=== PATIENT | female | born 1945 | race Caucasian/White ===

== ENCOUNTER 2016-11-21 00:45 | Emergency (ER) | payer OTHER ==
[~2016-11-21] VITALS: Ht 162.6 cm; Wt 77.1 kg
[2016-11-21 00:55] VITALS: BP 145/99
--- NOTE | 2016-11-21 01:00 | NUR ---
PT CLIVE ALS. TAKEN TO BED 4
--- NOTE | 2016-11-21 01:03 | NUR ---
REPORTED TO POISON CONTROL AND SPOKEN TO BUBBA AND ADVISED CLOSED OBSERVATION FOR DROWSINESS, VOMITING, SEIZURE, FOR 8-10 HOURS OBSERVATION, SUPPORTIVE MEASURES, AND BLOOD WORKS ERMD ORDERED ALREADY.
--- NOTE | 2016-11-21 01:05 | NUR ---
PT PLACE ON 5[address] HOLD BY RADHA BAR
[2016-11-21 01:21] LABS: BASOPHILS # (AUTO) 0.1 K/uL (0.00-0.22); BASOPHILS % (AUTO) 1.3 % (0.0-2.0); EOSINOPHILS # (AUTO) 0.3 K/uL (0-0.4); EOSINOPHILS % (AUTO) 2.9 % (0.0-4.0); HEMATOCRIT 39.7 % (36-48); LYMPHOCYTES # (AUTO) 3.1 K/uL (2.5-16.5); MEAN CORPUSCULAR HEMOGLOBIN 28 pg (27-31); MEAN CORPUSCULAR HGB CONC 33 g/dL (33-37); MEAN CORPUSCULAR VOLUME 85 fL (80-94); MONOCYTES # (AUTO) 0.5 K/uL (0.8-1.0); MONOCYTES % (AUTO) 5.7 % (1.7-9.3); NEUTROPHILS # (AUTO) 5.2 K/uL (1.8-7.7); NEUTROPHILS % (AUTO) 56.1 % (42.2-75.2); PLATELET COUNT (AUTO) 228 K/uL (140-450); RED BLOOD CELL COUNT(AUTO) 4.69 MIL/uL (4.20-5.40); RED CELL DISTRIBUTION WIDTH 12.4 % (11.6-13.7); WHITE BLOOD COUNT (AUTO) 9.2 K/uL (4.8-10.8)
--- NOTE | 2016-11-21 01:39 | NUR ---
PATIENT CLIVE PRESENTS TO ED AFTER TAKING 6-8 [employer] AND TELLING NEIGHBORS SHE WROTE A GOOD BYE LETTER . PT STATES SHE IS IN NO CURRENT PAIN AT THIS TIME . DENIES N/V/D; SKIN IS PINK/WARM/DRY; AAOX4 WITH EVEN AND STEADY GAIT; LUNGS CLEAR BL; HR EVEN AND REGULAR; PT DENIES ANY FEVER, CP, SOB, OR COUGH AT THIS TIME; PATIENT STATES PAIN OF 0/10 AT THIS TIME; VSS; PATIENT POSITIONED FOR COMFORT; HOB ELEVATED; BEDRAILS UP X2; BED DOWN. ER MD MADE AWARE OF PT STATUS.
[2016-11-21 01:49] LABS: ALANINE AMINOTRANSFERASE 22 U/L (12-78); ALBUMIN 3.7 g/dL (3.4-5.0); ALCOHOL, BLOOD < 3 mg/dL (<3); ALKALINE PHOSPHATASE 93 U/L (46-116); ANION GAP 13.5 (8-16); ASPARTATE AMINOTRANSFERASE 19 U/L (15-37); CALCIUM 9.5 mg/dL (8.5-10.1); CARBON DIOXIDE 29.5 mmol/L (21-32); CHLORIDE 100 mmol/L (98-107); CREATININE 1.1 mg/dL (0.6-1.3); GLUCOSE 256 mg/dL (74-106); SODIUM SERUM 139 mmol/L (136-145); TOTAL BILIRUBIN 0.2 mg/dL (0.0-1.0); TOTAL PROTEIN, SERUM 7.2 g/dL (6.4-8.2); UREA NITROGEN, BLOOD 15 mg/dL (7-18)
[2016-11-21 01:50] LABS: SALICYLATE < 2.8 mg/dL (2.8-20.0)
[2016-11-21 01:51] LABS: ACETAMINOPHEN < 0.5 ug/ml (10-30)
--- NOTE | 2016-11-21 02:07 | NUR ---
PT UNSUCCESSFUL ATTEMPT TO GIVE URINE SAMPLE
[2016-11-21 02:38] LABS: APPEARANCE,URINE SL CLOUDY (CLEAR); BILIRUBIN,URINE NEGATIVE (NEGATIVE); BLOOD, URINE 1+ (NEGATIVE); COLOR,URINE YELLOW (YELLOW); LEUKOCYTE ESTERASE ,URINE TRACE (NEGATIVE); NITRITE, URINE NEGATIVE (NEGATIVE); PROTEIN,URINE 2+ (NEGATIVE); UGLUCOSE 2+ (NEGATIVE); UROBILINOGEN,URINE 0.2 EU/dL (0.2 - 1)
[2016-11-21 02:46] LABS: AMPHETAMINE, URINE NEG. ng/ml (NEG <=1000); BARBITURATE, URINE NEG. ng/ml (NEG <=200); BENZODIAZEPINE, URINE NEG. ng/mL (NEG <=200); CANNABINOID, URINE NEG. ng/mL (NEG <=50); COCAINE, URINE NEG. ng/mL (NEG <=300); OPIATE, URINE NEG. ng/mL (NEG <=2000); PHENCYCLIDINE SCREEN,URINE NEG. ng/mL (NEG <=25)
[2016-11-21 02:59] LABS: BACTERIA,URINE 2+ /HPF (None Seen); MUCUS,URINE 3+ /LPF (None Seen); WBC,URINE 40-60 /HPF (0-5)
[2016-11-21] MEDS ORDERED: cefTRIAXone 1,000 MG VIAL ONE (04:51)
--- NOTE | 2016-11-21 05:55 | NUR ---
Patient appears to be resting comfortably in bed. Vital Signs within normal limits. Respirations even and unlabored.
--- NOTE | 2016-11-21 07:11 | NUR ---
Pt report given to YEN WEIR. Transfer of care at this time.
[2016-11-21 07:44] VITALS: BP 151/73
--- NOTE | 2016-11-21 07:45 | NUR ---
PT WILL GO TO [facility], DR. GODFREY TALKED TO PT REGARDING THE TRANSFER.Patient discharged with v/s stable. Written and verbal after care instructions given and explained. Patient verbalized understanding. Ambulance Transport with steady gait. All questions addressed prior to discharge. PT REFUSED BREAKFAST AT THIS TIME CLAIMED I USUALLY WOKE UP AROUND NOON, AND I LIVE ALONE.PT AAO, NO DISTRESS NOTED.
== END 2016-11-21 07:11 ==
LOC: MED 00:45
DX: T43.222A Poisoning by selective serotonin reuptake inhibitors, intentional self-harm, initial encounter (principal); R45.851 Suicidal ideations; N30.90 Cystitis, unspecified without hematuria; E11.9 Type 2 diabetes mellitus without complications; I10 Essential (primary) hypertension; J44.9 Chronic obstructive pulmonary disease, unspecified; F31.9 Bipolar disorder, unspecified; Y92.89 Other specified places as the place of occurrence of the external cause
CPT/HCPCS: 36415; 80053; 80305; 81001; 82948; 84443; 85025; 87086; 93005; 96365; 99285; G0480; G0482; J0696; J7060